=== PATIENT | male | born 1960 | race Caucasian/White ===

== ENCOUNTER 2023-12-19 10:45 | Emergency (ER) | payer BC, OTHER ==
[~2023-12-19] VITALS: Ht 177.8 cm; Wt 103.0 kg
[2023-12-19 12:10] VITALS: BP 123/66; PULSE 80; RESP 16; TEMP 98.3; O2SAT 95
[2023-12-19] MEDS ORDERED: IBUP-1456 PO (12:45)
[2023-12-19] MEDS ORDERED: METH-1182 PO (12:45)
== END 2023-12-19 12:56 | disposition home or self-care (01) ==
LOC: ER 10:45
DX: S16.1XXA Strain of muscle, fascia and tendon at neck level, initial encounter (principal); S39.012A Strain of muscle, fascia and tendon of lower back, initial encounter; V43.52XA Car driver injured in collision with other type car in traffic accident, initial encounter; Y93.89 Activity, other specified; Y92.488 Other paved roadways as the place of occurrence of the external cause; Y99.8 Other external cause status
CPT/HCPCS: 72040; 72100